=== PATIENT | male | born 1990 | race Caucasian/White ===

== ENCOUNTER 2018-01-21 13:34 | Emergency (ER) | payer OTHER ==
--- NOTE | 2018-01-21 13:44 | EDPHY ---
H & P Time Seen by Provider: 01/21/18 13:34 HPI/ROS: CHIEF COMPLAINT: Headache HISTORY OF PRESENT ILLNESS: Patient arrives by limited trauma activation from EMS. He works at the [employer] area and apparently was found unconscious by coworkers. He was wearing his helmet and snowboard boots, thinks he fell when he hit a divot in the snow after landing a jump. 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 He does not remember falling or hitting his head. He was initially repetitive on EMS arrival. Currently he complains only of pain in the right side of his head just lateral to his eye and his right mandaeism , and pain in his right jaw. He was bleeding apparently from his nose. Denies neck or back pain or weakness or numbness in extremities. REVIEW OF SYSTEMS: Eye: no change in vision or double vision ENT: No hearing loss, does have bloody nose, complains of right jaw pain, no malocclusion or dental injury. Cardiac: No chest pain Pulmonary: Not short of breath Abdomen: No vomiting or abdominal pain Musculoskeletal: no back pain or neck pain, no extremity pain. Skin: No laceration Neuro: HPI, no vertigo or dizziness Constitutional: no fever : no urinary symptoms A comprehensive 10 point review of systems is otherwise negative aside from elements mentioned in the history of present illness. PAST MEDICAL HISTORY: Asthma Social history: Works at [employer], no alcohol General Appearance: Alert and conversant, cooperative. Eyes: No scleral icterus. Pupils equal reactive extraocular motion intact. ENT, Mouth: Normal mucous membranes. No intraoral bleeding, no nasal septal hematoma, no hemotympanum. Respiratory: Normal respiratory effort, breath sounds equal, lungs are clear to auscultation. Cardiovascular: Regular rate and rhythm. Gastrointestinal: Abdomen is soft and non tender. Neurological: Alert, face symmetric, normal motor and sensory in extremities. Speech is fluent, knows where he is and the year. Skin: Some dry blood on his face but no lacerations. Musculoskeletal: No cervical thoracic or lumbar spine tenderness to palpation. No extremity deformity or pain to palpation. Pelvis is stable. Psychiatric: Not agitated. Emergency Department course/MDM: Cervical spine cleared clinically by myself on arrival. Head CT performed for head trauma with loss of consciousness. Downgraded to no level trauma activation after vital signs performed. Not hypotensive or tachycardic. 1436: Right maxillary sinus and inferior orbital floor fracture; no retrobulbar bleed or entrapment. Head negative for trauma. Mass in left sphenoid sinus, cystic lesion in pineal recess; Dr. Hernandez. Results reviewed on the computer with the patient. 2 oral oxycodone. ENT follow-up, may need to be through work comp. 1457: Discussed with Sandy Pinedo, ENT; no antibiotics and office followup. 1515: Requesting Vicodin instead of Percocet because of nausea, given Zofran 4 mg. Warned he needs MRI follow-up for what is probably a benign cyst in his brain. Constitutional: Initial Vital Signs Temperature (C) 36.7 C 01/21/18 13:47 Heart Rate 78 01/21/18 13:47 Respiratory Rate 16 01/21/18 13:47 Blood Pressure 121/83 H 01/21/18 13:47 O2 Sat (%) 96 01/21/18 13:47 O2 Delivery Mode Room Air Allergies/Adverse Reactions: Sulfa (Sulfonamide Antibiotics) Allergy (Verified 01/21/18 13:47) Home Medications: Medication Instructions Recorded Hydrocodone/APAP 5/325 [[place] 1 tab PO Q4-6PRN PRN #11 tab 01/21/18 5/325] Ondansetron Odt [Zofran Odt] 4 mg PO Q4PRN #6 tab 01/21/18 Medical Decision Making - Diagnostics Imaging Results: Imaging Impressions Face CT 01/21/18 13:47 Impression: 1. Comminuted fractures of the right maxillary sinus, with involvement of the anterior, lateral, medial, and superior christopher. There is also a nondisplaced fracture through the inferior aspect of the lateral wall of the right orbital cavity contiguously. 2. 2.2 cm solid mass within the inferior aspect of the left sphenoid sinus, potentially representing a polyp. Head CT 01/21/18 13:47 Impression: 1. No evidence of acute intracranial hemorrhage. 2. Comminuted right maxillary sinus fracture, subsequently described on noncontrast CT facial bones. 3. 2.2 cm solid-appearing mass within the left sphenoid sinus. 4. Cystic fullness within the pineal recess, eccentric toward the right. This may represent an arachnoid cyst, although characterization with MRI brain without and with contrast requested. Results called to Dr. Ángel Ross at 2:30 PM at the time of the interpretation. Imaging: Discussed imaging studies w/ outbound call center representative Radiologist Differential Diagnosis: Differential diagnosis considered for head injury including but not limited to concussion, skull fracture, intraparenchymal contusion, subarachnoid, subdural and epidural hematoma. - Data Points Medications Given: Discontinued Medications Oxycodone/Acetaminophen (Percocet 5/325) 2 tab PO EDNOW ONE Stop: 01/21/18 14:52 Last Admin: 01/21/18 14:55 Dose: 2 tab Departure - Departure Disposition: Home, Routine, Self-Care Clinical Impression: Concussion Qualifiers: Encounter type: initial encounter Loss of consciousness presence/duration: with LOC of 30 min or less Qualified Code(s): S06.0X1A - Concussion with loss of consciousness of 30 minutes or less, initial encounter Maxillary sinus fracture Qualifiers: Encounter type: initial encounter Fracture type: closed Qualified Code(s): S02.401A - Maxillary fracture, unspecified side, initial encounter for closed fracture Condition: Good Instructions: Facial Fracture (ED), Concussion (ED) Additional Instructions: 1) No work until cleared by follow-up work comp clinic. 2) Please see the ENT clinic tomorrow for follow-up for facial fracture, either directly with them or through the work comp clinic if required by your employer. 3) you have a cyst in the CT brain noted. Not related to your injury today. Probably benign, but needs followup MRI in the next month to confirm; you are referred to the primary care doctor color consultant today, speak to Dr. Arriola or work comp clinic to arrange. Referrals: Work Comp Ref/Restrictions [Outside] - As per Instructions Dhruv Polanco MD [Medical Doctor] - 1 day without fail (followup with ENT tomorrow, either directly or via Work Comp clinic if needed. ) YUSUF ARRIOLA [Medical Doctor] - As per Instructions Prescriptions: Hydrocodone/APAP 5/325 [[place] 5/325] 1 tab PO Q4-6PRN PRN #11 tab PRN Reason: For Pain Ondansetron Odt [Zofran Odt] 4 mg PO Q4PRN #6 tab
[2018-01-21] MEDS ORDERED: OXYCODONE/APAP 5/325 TAB PO ONE (14:51)
[2018-01-21 15:00] VITALS: BP 118/76
[2018-01-21] MEDS ORDERED: ONDANSETRON 4 MG/2 ML VIAL IVP ONE (15:17)
== END 2018-01-21 15:41 | disposition home or self-care (01) ==
DX: S06.0X1A Concussion with loss of consciousness of 30 minutes or less, initial encounter (principal); S02.31XA Fracture of orbital floor, right side, initial encounter for closed fracture; S02.40CA Maxillary fracture, right side, initial encounter for closed fracture; V00.311A Fall from snowboard, initial encounter; Y93.23 Activity, snow (alpine) (downhill) skiing, snowboarding, sledding, tobogganing and snow tubing; G93.9 Disorder of brain, unspecified
CPT/HCPCS: 96374; J2405

== ENCOUNTER → 2018-02-08 | Outpatient (CLI) | payer OTHER | LOC: FIMAGING 12:50 | PROVIDERS: ATTEND Otolaryngology | DX: S02.40 Fracture of malar, maxillary and zygoma bones, unspecified (principal) ==

== ENCOUNTER 2018-06-18 22:03 | Emergency (ER) | payer MEDICAID, OTHER ==
[2018-06-18 22:08] VITALS: BP 114/72
[2018-06-18] MEDS ORDERED: OXYCODONE/APAP 5/325 TAB PO ONE (22:11)
--- NOTE | 2018-06-18 22:18 | EDPHY ---
H & P Time Seen by Provider: 06/18/18 22:09 HPI/ROS: CHIEF COMPLAINT: Left otalgia since this evening HISTORY OF PRESENT ILLNESS: 28-year-old immunocompetent male complaining of 2 days of URI symptoms with development of left otalgia this evening. No barotrauma. No hearing loss. No tinnitus. No vertigo. No otorrhea. No sore throat. No headache. No visual changes. No ocular discharge. PRIMARY CARE PROVIDER: REVIEW OF SYSTEMS: 10 systems reviewed and negative with the exception of the elements mentioned in the history of present illness PAST MEDICAL & SURGICAL HISTORY: No pertinent medical or surgical history SOCIAL HISTORY: Nonsmoker PHYSICAL EXAM (Prior to examination, patient consented to physical exam, hands were washed and my usual and customary physical exam procedures followed) 1) GENERAL: Well-developed, well-nourished, alert and oriented. Appears uncomfortable 2) HEAD: Normocephalic, atraumatic 3) HEENT: Pupils equal, round, reactive to light bilaterally. Sclera anicteric. No injection. No discharge. No periorbital erythema or induration or proptosis. Right ear: Nonbulging non erythematous tympanic membrane. Left ear: Bulging erythematous tympanic membrane with no evidence of perforation. Bilateral mastoid nontender non boggy. Symmetrical faces. 4) NECK: Full range of motion, no meningeal signs. 5) LUNGS: Clear auscultation bilaterally, no wheezes, no rhonchi, no retractions. 6) HEART: Regular rate and rhythm, no murmur, no heave, no gallop. 7) ABDOMEN: No guarding, no rebound, no focal tenderness, negative McBurney's, negative Lilly's, negative Rovsing's, negative peritoneal sign, 8) MUSCULOSKELETAL: Moving all extremities, no focal areas of tenderness, no obvious trauma. No peripheral edema or discoloration. 9) BACK: No CVA tenderness, no midline vertebral tenderness, no fluctuance, no step-off, no obvious trauma, no visual or palpable abnormality. 10) SKIN: No rash, no petechiae. 11) Psychiatric: Patient is oriented X 3, there is no agitation. DIFFERENTIAL DIAGNOSIS: In no particular order including but not limited to otitis media, otitis externa, mastoiditis, otitis externa with conjunctivitis. Smoking Status: Never smoked Constitutional: Initial Vital Signs Temperature (C) 37.7 C 06/18/18 22:05 Heart Rate 97 06/18/18 22:05 Respiratory Rate 18 06/18/18 22:05 Blood Pressure 114/72 06/18/18 22:05 O2 Sat (%) 92 06/18/18 22:05 O2 Delivery Mode Room Air Allergies/Adverse Reactions: Sulfa (Sulfonamide Antibiotics) Allergy (Verified 06/18/18 22:07) Home Medications: Medication Instructions Recorded Albuterol [Ventolin Hfa Inhaler] 200 puffs IH 06/18/18 Amoxicillin/Clavulanate Pot 875 mg PO BID #14 tab 06/18/18 [Augmentin 875 mg tab] MDM/Departure - MDM Medications Given: Discontinued Medications Oxycodone/Acetaminophen (Percocet 5/325) 2 tab PO EDNOW ONE Stop: 06/18/18 22:12 Last Admin: 06/18/18 22:20 Dose: 2 tab - Depart Disposition: Home, Routine, Self-Care Clinical Impression: Left otitis media Qualifiers: Otitis media type: unspecified Qualified Code(s): H66.92 - Otitis media, unspecified, left ear Condition: Good Instructions: Serous Otitis Media (ED), Hydrocodone/Acetaminophen (By mouth) Additional Instructions: Return to the ER if you develop new or worsening symptoms, if you develop hearing loss, or any other symptoms that concern you. Prescriptions: Amoxicillin/Clavulanate Pot [Augmentin 875 mg tab] 875 mg PO BID #14 tab Referrals: Arnol Butts MD [Primary Care Provider] - 2-3 days, call for appt.
[2018-06-18] MEDS ORDERED: AMOXICILLIN/CLAVULANATE POT 875/125 MG TAB PO ONE (22:22)
[2018-06-18] MEDS ORDERED: HYDROCOD/APAP 5/325 PREPACK#6 BTL TAKEHOME ONE (22:23)
== END 2018-06-18 22:38 | disposition home or self-care (01) ==
DX: H66.92 Otitis media, unspecified, left ear (principal)

== ENCOUNTER 2018-06-23 16:43 | Emergency (ER) | payer MEDICAID ==
--- NOTE | 2018-06-23 17:00 | EDPHY ---
H & P Time Seen by Provider: 06/23/18 16:47 HPI/ROS: CHIEF COMPLAINT: Neck pain HISTORY OF PRESENT ILLNESS: Patient works at the [employer] area and was doing a jump on his snowboard at 11:00 a.m. [place] went further than expected landed on his feet then bottom and then back and neck. He did not lose consciousness, does not have a headache. Developed worsening neck pain over the course of the day, feels like it is "loose" does not have much support without wearing a collar. He was seen by skill labor placed in a collar and sent here for evaluation. Denies weakness or numbness in extremities. Pain is mild to moderate. Just also feels like he has some neck instability. It feels a little bit weak without back support of the collar. REVIEW OF SYSTEMS: Eye: no change in vision ENT: Decreased hearing in left ear, being treated for recently diagnosed left ear infection Cardiac: no chest pain or syncope Pulmonary: no cough or SOB Abdomen: no vomiting, diarrhea, abdominal pain Musculoskeletal: no back pain Skin: no rash Neuro: no headache Constitutional: no fever : no urinary symptoms A comprehensive 10 point review of systems is otherwise negative aside from elements mentioned in the history of present illness. PAST MEDICAL HISTORY: Previous facial fracture, previous left clavicle fracture , ear as above Social history: Works at the [employer] General Appearance: Alert and conversant, cooperative. Eyes: No scleral icterus. Pupils equal reactive extraocular motion intact. ENT, Mouth: Normal mucous membranes. Cerumen in the left ear canal Respiratory: Normal respiratory effort, breath sounds equal, lungs are clear to auscultation. Cardiovascular: Regular rate and rhythm. Gastrointestinal: Abdomen is soft and non tender. Neurological: Alert, face symmetric, normal motor and sensory in extremities. Good bread dumper strength bilaterally. Ambulatory. Normal mental status. Skin: Warm and dry, no rashes. Musculoskeletal: Some cervical spine tenderness but no thoracic or lumbar spine tenderness. No extremity tenderness. Psychiatric: Not agitated. Emergency Department course/MDM: Low suspicion for vascular dissection or concussion. Does not appear to have spinal injury in the thoracic or lumbar region. CT cervical spine discussed and consented for neck pain and tenderness and trauma. 1729: Negative CT cervical spine per Dr. Hernandez. Clinically cleared by myself. Symptomatic treatment and follow up with primary care. Normal extremity neurologic examination. Smoking Status: Never smoked Constitutional: Initial Vital Signs Temperature (C) 37 C 06/23/18 16:59 Heart Rate 94 06/23/18 16:59 Respiratory Rate 16 06/23/18 16:59 Blood Pressure 120/74 06/23/18 16:59 O2 Sat (%) 94 06/23/18 16:59 O2 Delivery Mode Room Air Allergies/Adverse Reactions: bacitracin Allergy (Verified 06/23/18 16:57) Sulfa (Sulfonamide Antibiotics) Allergy (Verified 06/18/18 22:07) Home Medications: Medication Instructions Recorded Albuterol [Ventolin Hfa Inhaler] 200 puffs IH 06/18/18 Amoxicillin/Clavulanate Pot 875 mg PO BID #14 tab 06/18/18 [Augmentin 875 mg tab] Medical Decision Making - Diagnostics Imaging Results: Imaging Impressions Cervical Spine CT 06/23/18 17:00 Impression: 1. Negative noncontrast CT examination of the cervical spine. Results called to Dr. Ross at 5:29 PM Imaging: Discussed imaging studies w/ call center trainer Radiologist - Data Points Medications Given: Discontinued Medications Hydrocodone Bitart/Acetaminophen ([place] 5/325mg Prepack#6) 1 btl TAKEHOME EDNOW ONE Stop: 06/23/18 17:37 Last Admin: 06/23/18 17:44 Dose: 1 btl Ibuprofen (Motrin) 600 mg PO EDNOW ONE Stop: 06/23/18 17:37 Last Admin: 06/23/18 17:44 Dose: 600 mg Departure - Departure Disposition: Home, Routine, Self-Care Clinical Impression: Neck muscle strain Qualifiers: Encounter type: initial encounter Qualified Code(s): S16.1XXA - Strain of muscle, fascia and tendon at neck level, initial encounter Condition: Good Instructions: Hydrocodone/Acetaminophen (By mouth), Cervical Strain (ED), R.I.C.E. Treatment (ED) Additional Instructions: Normal cervical spine CT. Activity as tolerated. Referrals: Arnol Butts MD [Medical Doctor] - 3-4 days, if not improved
[2018-06-23] MEDS ORDERED: HYDROCOD/APAP 5/325 PREPACK#6 BTL TAKEHOME ONE (17:36)
[2018-06-23] MEDS ORDERED: IBUPROFEN 600 MG TAB PO ONE (17:36)
[2018-06-23 17:45] VITALS: BP 116/69
== END 2018-06-23 17:45 | disposition home or self-care (01) ==
DX: S16.1XXA Strain of muscle, fascia and tendon at neck level, initial encounter (principal); Z87.81 Personal history of (healed) traumatic fracture; V00.311A Fall from snowboard, initial encounter; Y93.23 Activity, snow (alpine) (downhill) skiing, snowboarding, sledding, tobogganing and snow tubing; Y92.838 Other recreation area as the place of occurrence of the external cause

== ENCOUNTER → 2018-07-09 | Outpatient (CLI) | payer MEDICAID ==
[~2018-07-09] MED LIST: GADOBUTROL 10 ML VIAL IVP ONE
== END ==
LOC: FIMAGING 15:02
PROVIDERS: ATTEND Family Medicine
DX: L72.0 Epidermal cyst (principal); J01.90 Acute sinusitis, unspecified; J34.1 Cyst and mucocele of nose and nasal sinus; R90.89 Other abnormal findings on diagnostic imaging of central nervous system
CPT/HCPCS: A9585